=== PATIENT | female | born 1990 | race Caucasian/White ===

== ENCOUNTER 2016-09-27 10:05 | Emergency (ER) | payer OTHER ==
[2016-09-27 12:21] VITALS: BP 131/74
--- NOTE | 2016-09-27 12:59 | RAD ---
CLINICAL HISTORY: Right flank pain and microscopic hematuria COMPARISON: None TECHNIQUE: Multiple contiguous axial CT scans were obtained of the abdomen and pelvis, without intravenous contrast enhancement. Coronal and sagittal multiplanar reformations are submitted for review. Oral contrast was not administered. FINDINGS: The study is limited by the lack of intravenous contrast. This limits evaluation of the solid organs and vasculature. LUNG BASES: The lung bases are clear. LIVER: The liver is normal in shape, size, contour, and attenuation. BILE DUCTS: There is no intrahepatic or extrahepatic biliary dilatation. GALLBLADDER: The gallbladder is normal, without pericholecystic inflammatory change. PANCREAS: The pancreas is normal, without mass or ductal dilatation. SPLEEN: Normal in size and appearance. UPPER GI TRACT: Evaluation of the gastrointestinal tract is limited by incomplete gastric distention. The upper GI tract is unremarkable. SMALL BOWEL AND MESENTERY: The small bowel is normal in contour, course, and caliber. There is no obstruction or dilatation. COLON: The colon is normal in contour, course, caliber. There is no pericolonic inflammatory change. ADRENALS: Normal bilaterally. KIDNEYS: The kidneys are normal in shape, size, contour, and axis. There is no hydronephrosis or nephrolithiasis. BLADDER: The bladder is smooth in contour. PELVIC ORGANS: An IUD is noted. AORTA: The aorta is normal. IVC: Unremarkable LYMPH NODES: There is no lymphadenopathy by size criteria. ABDOMINAL WALL: There is no evidence for abdominal wall hernia. BONES AND SOFT TISSUES: Unremarkable OTHER: None IMPRESSION: NO HYDRONEPHROSIS OR NEPHROLITHIASIS.
--- NOTE | 2016-09-27 13:20 | UC ---
Complaint Female HPI - HPI Summary HPI Summary: 25 yo female with right flank pain x days associated with urgency and frequency of urination no f/c some nausea pain 6/10 hx uti hx kidney stones no vag d/c or itch - History Of Current Complaint Chief Complaint: UCGU Stated Complaint: URINARY,RIGHT/SIDE BACK PAIN Time Seen by Provider: 09/27/16 12:19 Hx Obtained From: Patient Hx Last Menstrual Period: 09/17/16 Onset/Duration: Gradual Onset, Lasting Days Timing: Constant Severity Initially: Moderate Severity Currently: Moderate Pain Intensity: 6 Pain Scale Used: 0-10 Numeric Character: Colicy Aggravating Factor(s): Nothing Alleviating Factor(s): Nothing Associated Signs And Symptoms: Positive: Back Pain, Nausea - Allergies/Home Medications Allergies/Adverse Reactions: Allergies Allergy/AdvReac Type Severity Reaction Status Date / Time Amoxicillin Allergy Intermediate Hives Verified 03/03/16 10:14 Cefaclor [From Ceclor] Allergy Intermediate Hives Verified 03/03/16 10:14 seasonal Allergy Shortness Uncoded 03/03/16 10:15 of Breath PMH/Surg Hx/FS Hx/Imm Hx Previously Healthy: Yes Endocrine History Of: Denies: Diabetes Cardiovascular History Of: Denies: Cardiac Disorders Respiratory History Of: Reports: Asthma GI/ History Of: Reports: Kidney Stones Psychological History Of: Reports: Anxiety - Surgical History Surgical History: Yes Surgery Procedure, Year, and Place: appy - Family History Known Family History: Positive: Hypertension Negative: Respiratory Disease, Seizure Disorder - Social History Alcohol Use: None Substance Use Type: None Smoking Status (MU): Never Smoked Tobacco Review of Systems Constitutional: Negative Skin: Negative Eyes: Negative ENT: Negative Respiratory: Negative Cardiovascular: Negative Gastrointestinal: Negative Genitourinary: Frequency, Urgency, Other - right flank pain Motor: Negative Neurovascular: Negative Musculoskeletal: Negative Neurological: Negative Psychological: Negative All Other Systems Reviewed And Are Negative: Yes Physical Exam Triage Information Reviewed: Yes Appearance: Pain Distress Vital Signs: Initial Vital Signs Temp 98.3 F 09/27/16 12:06 Pulse 84 09/27/16 12:06 Resp 14 09/27/16 12:06 BP 131/74 09/27/16 12:06 Pulse Ox 100 09/27/16 12:06 Vital Signs Reviewed: Yes Eyes: Positive: Conjunctiva Clear ENT: Positive: Hearing grossly normal. Negative: Nasal congestion, Nasal drainage, Tonsillar swelling, Tonsillar exudate, Trismus, Muffled/hoarse voice Neck: Positive: Supple, Nontender Respiratory: Positive: Lungs clear, Normal breath sounds, No respiratory distress, No accessory muscle use Cardiovascular Exam: Normal Cardiovascular: Positive: RRR, No Murmur. Negative: Tachycardia, Bradycardia Abdomen Description: Positive: Nontender, No Organomegaly, Soft, CVA Tenderness (R) Bowel Sounds: Positive: Present Musculoskeletal: Positive: ROM Intact, No Edema Neurological Exam: Normal Neurological: Positive: Alert Psychological Exam: Normal Skin Exam: Normal Complaint Female Dx - Differential Dx/Diagnosis Provider Diagnoses: right flank pain of uncertain cause. ? UTI Discharge - Discharge Plan Condition: Stable Disposition: HOME Prescriptions: Ciprofloxacin TAB* [Cipro Tab*] 250 mg PO BID #14 tab HYDROcodone/ACETAMIN 5-325 MG* [[place] 5-325 TAB*] 1 tab PO Q4H PRN #15 tab MDD 4 PRN Reason: Pain Ibuprofen TAB* [Motrin TAB*] 600 mg PO QID PRN #40 tab PRN Reason: Pain Phenazopyridine TAB* [Pyridium TAB*] 100 mg PO TID #6 tab Patient Education Materials: Urinary Tract Infection in Women (ED) Forms: *Work Release Referrals: No Primary Care Phys,NOPCP [Primary Care Provider] - Additional Instructions: POSSIBLE UTI URINE CULTURE PENDING YOUR CT SCAN SHOWED NO STONE RECHECK IN 2 DAYS IF NOT BETTER TO ER FOR NEW SYMPTOMS
== END 2016-09-27 13:28 | disposition home or self-care (01) ==
LOC: UCCORT 10:05
DX: R10.9 Unspecified abdominal pain (principal); Z87.442 Personal history of urinary calculi; Z87.440 Personal history of urinary (tract) infections; Z88.1 Allergy status to other antibiotic agents
CPT/HCPCS: 74176; 81025; 87086; 99212; G0463

== ENCOUNTER 2017-11-05 09:26 | Emergency (ER) | payer OTHER ==
[2017-11-05 09:43] VITALS: BP 134/78
--- NOTE | 2017-11-05 10:02 | UC ---
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 she states having headaches in her frontal and posterior head for the past week, actually better today. However, SHIRLEY was bad when she first woke up this morning. Pain has been over face/cheeks all week. Has hadsinus infections before and thinks that this may be same. denies fevers/chills. Body aches started yesterday , appetite has been ok. no n/v. Mild ST. Has mild asthma and has used albuterol with good relief for mild cough/asthma sx. - History of Current Complaint Chief Complaint: UCRespiratory Stated Complaint: BODY ACHES, SORE THROAT, CONGESTION Time Seen by Provider: 11/05/17 09:59 Hx Last Menstrual Period: 11/04/17 Pain Intensity: 3 - Allergies/Home Medications Allergies/Adverse Reactions: Allergies Allergy/AdvReac Type Severity Reaction Status Date / Time MS Amoxicillin [Amoxicillin] Allergy Intermediate Hives Verified 11/05/17 09:43 MS Cefaclor [From Ceclor] Allergy Intermediate Hives Verified 11/05/17 09:43 PMH/Surg Hx/FS Hx/Imm Hx Previously Healthy: Yes Respiratory History: Asthma - Surgical History Surgical History: Yes Surgery Procedure, Year, and Place: appy - Family History Known Family History: Positive: Hypertension, Diabetes - Brother, type I Negative: Respiratory Disease, Seizure Disorder - Social History Alcohol Use: Occasionally Substance Use Type: None Smoking Status (MU): Never Smoked Tobacco Review of Systems Constitutional: Fatigue Skin: Negative Eyes: Negative ENT: Sore Throat, Sinus Pain/Tenderness Respiratory: Negative Cardiovascular: Negative Gastrointestinal: Negative Genitourinary: Negative Motor: Negative Neurovascular: Negative Musculoskeletal: Negative Neurological: Negative Psychological: Negative Is Patient Immunocompromised?: No All Other Systems Reviewed And Are Negative: Yes Physical Exam Triage Information Reviewed: Yes Appearance: Well-Appearing, No Pain Distress, Well-Nourished Vital Signs: Initial Vital Signs Temp 98.6 F 11/05/17 09:35 Pulse 93 11/05/17 09:35 Resp 16 11/05/17 09:35 BP 134/78 11/05/17 09:35 Pulse Ox 100 11/05/17 09:35 Vital Signs Reviewed: Yes Eye Exam: Normal ENT: Positive: Pharyngeal erythema - no exudate, no abscess, Sinus tenderness - B/L maxillary > frontal.. Negative: TM bulging - mild rt serous fluid, TM dull , TM red, Hoarse voice Dental Exam: Normal Neck exam: Normal Neck: Positive: Supple, Nontender, No Lymphadenopathy Respiratory: Positive: Lungs clear, Normal breath sounds, No respiratory distress, No accessory muscle use. 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 We discussed that she is still contagious and should refrain from contact while she has sx, mask and hand washing. - Differential Dx/Diagnosis Differential Diagnosis/HQI/PQRI: Asthma, Bronchitis, Influenza, Sinusitis Provider Diagnoses: sinusitis Discharge - Discharge Plan Condition: Stable Disposition: HOME Prescriptions: Azithromyxin SABRINA (NF) [Z-Sabrina (Zithromax) 250 mg tabs #6] 250 mg PO .ZPAK INSTRUCTIONS #6 tab Patient Education Materials: Sinusitis (ED) Referrals: No Primary Care Phys,NOPCP [Primary Care Provider] - Additional Instructions: Make sure to take a probiotic daily while on antibiotics to help prevent a potential complication of antibiotic use called c diff. Some well known brands that can be found OTC are florastor, align and [employer]. Make sure to complete the entire prescription unless advised otherwise by your health care provider. -Follow up with your PCP in 1 week if you are not improved.
== END 2017-11-05 10:18 | disposition home or self-care (01) ==
LOC: UCCORT 09:26
DX: J32.9 Chronic sinusitis, unspecified (principal); J45.909 Unspecified asthma, uncomplicated; Z88.1 Allergy status to other antibiotic agents; Z88.0 Allergy status to penicillin
CPT/HCPCS: 99212; G0463

== ENCOUNTER 2018-01-21 07:08 | Emergency (ER) | payer OTHER ==
--- OUTSIDE RECORDS SUMMARY | 2018-01-21 07:20 | XMS REPORT ---
:1990 External Reference #:[id number] Author Organization [facility] Address [address] [place] [id number] Phone [phone] Care Team Providers Name Role Phone No Primary Care Physician Unavailable Payers Type Date Identification Numbers Payment Provider Subscriber Commercial Effective: Policy Number: Lifetime Benefit Zuleyma Evans 2014 [id number] ([employer]) PayID: [id number] [address] [place] [address] Medicaid Effective: 2017 Policy Number: Medicaid Pe ([facility]) Zuleyma Evans [id number] Expires: 2017 PayID: [id number] [address] [place] [address] Problems Description No Active Problems Family History Date Family Member(s) Problem(s) Comments General Diabetes Brother General Lung Cancer PGM Father Alive Father No Current Problems Mother Alive Mother Hypertension Social History Type Date Description Comments Education Bachelor's Degree Marital Status Legal Status: Occupation Social Work Work Status Full-Time Employment ETOH Use Occasionally consumes alcohol Smoking Patient has never smoked Recreational Drug Use Denies Drug Use Recreational Drug Use Teaching provided regarding Naloxone/Narcan Training Available At [facility] [employer] [place] Allergies, Adverse Reactions, Alerts Date Description Reaction Status Severity Comments 03/26/2016 Amoxicillin active 03/26/2016 Ceclor active 03/26/2016 Environmental active Medications Medication Date Status Form Strength Qnty SIG Indications Ordering Provider Nexplanon Active Implant 68mg One device Z30.017 In [place], 017 in Right arm subdermal Fluconazole Hx Tablets 150mg 1tabs one tab B37.3 Evie Bailey 016 - orally x one [place], dose [employer]INE SUR[employer]OR 017 Breo Ellipta Hx Unknown 000 - 018 Medications Administered in Office Medication Date Status Form Strength Qnty SIG Indications Ordering Provider Nexplanon Administered Injection Diane Device Miguel Rahman NP Vital Signs Date Vital Result Comment 01/05/2018 BP Systolic 119 mmHg BP Diastolic 71 mmHg Height 66.5 inches 5'6.50" Weight 161.00 lb BMI (Body Mass Index) 25.6 kg/m2 06/15/2017 BP Systolic 107 mmHg BP Diastolic 67 mmHg Height 66.5 inches 5'6.50" Weight 162.00 lb BMI (Body Mass Index) 25.8 kg/m2 05/30/2017 BP Systolic 122 mmHg post nexplanon insertion BP Diastolic 74 mmHg post nexplanon insertion Height 66.5 inches 5'6.50" 12/07/2016 BP Systolic 102 mmHg BP Diastolic 80 mmHg Height 66.5 inches 5'6.50" Weight 155.00 lb BMI (Body Mass Index) 24.6 kg/m2 03/26/2016 BP Systolic 106 mmHg BP Diastolic 68 mmHg Height 66.5 inches 5'6.50" Weight 147.00 lb BMI (Body Mass Index) 23.4 kg/m2 Results Test Date Test Result H/L Range Note Thinprep Pap Glassware Finisher W/RFX 06/15/2017 Results SEE NOTE 1 HPV HR Laboratory test finding 05/30/2017 Test neg Urine..... Urinalysis DIP Only.... 12/07/2016 Urine Leukocyte Esterase n QN Urine Nitrite QN n Urine Blood +++hemolyzed spotting Urine PH 5 Urine Protein Random n Urine Ketone Random n Urine Glucose QN Random n Laboratory test finding 12/07/2016 HGB Blood.... 14.2 Test Urine..... negative Culture,Urine,Voided 03/26/2016 Source URINE Final Report NAD 2 Thinprep Pap Glassware Finisher 03/26/2016 Results SEE NOTE 3 W/RFX HPV Mrna E6/E7 Laboratory test finding 03/26/2016 C.Trachomatis NOT DETECTED Not Detected 4 Rna,Tma W/RFX N.Gonorrhoeae Rna,Tma Wet Prep.... 03/26/2016 WBC Smear few Clue Cells Vag Fluid Wet Prep 0 Cookie Wet Prep hyphae and buds Lactobacillus Wet Prep many Whiff Wet Prep neg Bacteria Wet Prep n/a PH Wet Prep 4.5 Misc Other Test no trich seen Nadine Annual Lab Set 03/26/2016 HGB Blood.... 12.4 Urinalysis DIP Only.... 03/26/2016 Urine Leukocyte Esterase QN ++ Urine Nitrite QN N Urine Blood N Urine PH 5.0 Urine Protein Random N Urine Ketone Random N Urine Glucose QN Random N Laboratory test finding 03/26/2016 Test Urine..... neg 1 GYNECOLOGICAL CYTOLOGY REPORT Thinprep TIS PAP w/rfx to HPV E6/E7 REPORT STATUS: FINAL CLINICAL INFORMATION: Routine exam SLIDES / SOURCE: 1 / Cervix, Endocervix STATEMENT OF ADEQUACY: Satisfactory for evaluation. Endocervical/transformation zone component present. INTERPRETATION/RESULT: Negative for intraepithelial lesion or malignancy. COMMENT: This Pap test has been evaluated with computer assisted technology. DIRECTOR OF SEARCH ENGINE MARKETING: STEPHANY ZENG([facility]) For informational Purposes: All cytology specimens are processed and screened at [facility]. [address] [place] [id number] 2 SINGLE ORGANISM LESS THAN 10,000 CFU/ML ISOLATED. THESE ORGANISMS, COMMONLY FOUND ON EXTERNAL AND INTERNAL GENITALIA, ARE CONSIDERED COLONIZERS. NO FURTHER TESTING PERFORMED. 3 GYNECOLOGICAL CYTOLOGY REPORT Thinprep TIS PAP w/rfx to HPV E6/E7 REPORT STATUS: FINAL CLINICAL INFORMATION: Routine exam SLIDES / SOURCE: 1 / Information not provided STATEMENT OF ADEQUACY: Satisfactory for evaluation. Endocervical/transformation zone component present. INTERPRETATION/RESULT: Negative for intraepithelial lesion or malignancy. COMMENT: This Pap test has been evaluated with computer assisted technology. DIRECTOR OF SEARCH ENGINE MARKETING: STEPHANY ZENG([facility]) For informational Purposes: All cytology specimens are processed and screened at [facility] [place]. [address] [place] [address] 4 This test was performed using the APTIMA COMBO2(R) Assay (GEN-PROBE(R). The analytical performance characteristics of this assay, when used to test SurePath(R) specimens have been determined by [facility]. Procedures Date CPT Code Description Status 06/15/2017 70637 Remove Intrauterine Device Completed 05/30/2017 14659 Insertion, Non-Biodegradable Drug Delivery Implant Completed Encounters Type Date Location Provider CPT E/M Dx Office Visit 01/05/2018 4:00p [facility] Evie Haynes [place] [id number] N92.1 Z30.09 Z30.46 Z11.3 R68.82 Plan of Care 01/05/2018 - Evie Haynes NPN92.1 Excessive and frequent menstruation with irregular cycleNew Labs:TSH & Free T4New Xrays:Ultrasound Pelvic Nonob CompleteComments:Likely secondary to Nexplanon but due to patient having issues with bleeding in the past with CopperIUD, will obtain pelvic ultrasound and check thyroid. GCCT obtained to r/o infection.Z30.09 Encounter for oth general coun and advice on contraceptionComments:Lengthy discussion regarding contraception options. Patient cannot remember to take pills and estrogen is contraindicated due to her hx of migraine with aura. She had weight gain on Depo. She had heavy, long menses on ParaGard. She is currently having btb on Nexplanon. Reviewed other options: abstinence, condoms, sterilization or IUD. Patient is considering sterilization but is not 100% sure that sheis ready. She is very interested in either the Kyleena or Mirena. Reviewed use of, side effects, benefits, risks and placement of both. She would like to discuss it further with her . At this time she plans to continue with the Nexplanon.Z30.46 Enctr srvlnc implantable subdermal contraceptiveComments:BTB on implant. Recommend Aleve 440mg po bid x 7 days. If no improvement and labs/ us are WNL, patient is considering either a Mirena or a Kyleena. She would like to keep the Nexplanon in for now.Z11.3 Encntr screen for infections w sexl mode of transmissComments:Reviewed STD risks and prevention with patient. Patient states understanding.R66.82 Decreased libidoComments:Lengthy discussion regarding her low libido. Advise increase exercise, stress reduction and more "date nights". If no improvement, will further evaluate.
[2018-01-21 07:31] VITALS: BP 103/76
--- NOTE | 2018-01-21 07:57 | UC ---
Throat Pain/Nasal Darío HPI - HPI Summary HPI Summary: Pt presents with cough, green sputum, wheeze progressive x 4 days. Pt with a h/ o asthma. Pt has been using albuterol MDI with short term relief. Pt with multiple sick contacts at work. no fever, chills, rash. + head congestion. No OTC meds taken. No recent prednisone. No hospitalizations Pt's medications reviewed this visit - History of Current Complaint Chief Complaint: UCRespiratory Stated Complaint: COUGH/ST Time Seen by Provider: 01/21/18 07:22 Hx Obtained From: Patient Hx Last Menstrual Period: 01/14/18 Onset/Duration: Gradual Onset Severity: Moderate Pain Intensity: 4 Pain Scale Used: 0-10 Numeric Cough: Productive - green sputum Associated Signs & Symptoms: Positive: Negative - Epiglottits Risk Factors Epiglottis Risk Factors: Negative - Allergies/Home Medications Allergies/Adverse Reactions: Allergies Allergy/AdvReac Type Severity Reaction Status Date / Time amoxicillin Allergy Unknown Hives Verified 01/21/18 07:23 cefaclor [From Ceclor] Allergy Unknown Hives Verified 01/21/18 07:23 Home Medications: Home Medications Etonogestrel [Nexplanon] 68 mg IMPLANT 01/21/18 [History] PMH/Surg Hx/FS Hx/Imm Hx Previously Healthy: Yes Respiratory History: Asthma - Surgical History Surgical History: Yes Surgery Procedure, Year, and Place: appy - Family History Known Family History: Positive: Hypertension, Diabetes - Brother, type I Negative: Respiratory Disease, Seizure Disorder - Social History Occupation: Employed Full-time - social scientist [employer] Lives: With Family Alcohol Use: Occasionally Substance Use Type: None Smoking Status (MU): Never Smoked Tobacco Review of Systems Constitutional: Negative Respiratory: Cough All Other Systems Reviewed And Are Negative: Yes Physical Exam Triage Information Reviewed: Yes Appearance: Well-Appearing, No Pain Distress, Well-Nourished Vital Signs: Initial Vital Signs Temp 99.2 F 01/21/18 07:24 Pulse 118 01/21/18 07:24 Resp 18 01/21/18 07:24 BP 103/76 01/21/18 07:24 Pulse Ox 97 01/21/18 07:24 Vital Signs Reviewed: Yes Eye Exam: Normal Eyes: Positive: Conjunctiva Clear ENT Exam: Normal ENT: Positive: Normal ENT inspection, Pharynx normal Dental Exam: Normal Neck exam: Normal Neck: Positive: Supple, Nontender, No Lymphadenopathy Respiratory: Positive: Chest non-tender, No respiratory distress, No accessory muscle use, Wheezing - + scattered wheeze coarse cough no rhonci, no accessory muscle Cardiovascular Exam: Normal Cardiovascular: Positive: RRR, No Murmur, Pulses Normal Abdominal Exam: Normal Abdomen Description: Positive: Nontender, No Organomegaly, Soft Bowel Sounds: Positive: Present Musculoskeletal Exam: Normal Musculoskeletal: Positive: Strength Intact Neurological Exam: Normal Neurological: Positive: Alert Psychological Exam: Normal Psychological: Positive: Normal Response To Family Skin Exam: Normal Re-Evaluation - Re-Evaluation First Eval Re-Evaluation Time: 08:35 Comment: pt improved aeration. wheezing resolved. pt states feeling better. secretion precaution. spacer given - pt has MDI. pt comfortable and in agreement with plan Throat Pain/Nasal Course/Dx - Course Course Of Treatment: pt with 5 days progressive productive cough and wheeze. head congestion. h/o asthma. Pt with diffuse wheeze. will give neb and close reassessment - Differential Dx/Diagnosis Provider Diagnoses: acute bronchitis Discharge - Sign-Out/Discharge Documenting (check all that apply): Discharge/Admit/Transfer - Discharge Plan Condition: Stable Disposition: HOME Prescriptions: Azithromycin TAB* [Zithromax TAB (Z-LEE ANN) 250 mg #6 tabs] 2 tab PO .TODAY, THEN 1 DAILY #1 lee ann Benzonatate CAP* [Tessalon 100 MG CAP*] 100 mg PO TID #21 cap predniSONE TAB* [Deltasone TAB*] 50 mg PO DAILY #5 tab Patient Education Materials: Acute Bronchitis (ED) Referrals: No Primary Care Phys,NOPCP [Primary Care Provider] - Additional Instructions: -Take antibiotics exactly as prescribed until gone -Use your albuterol puffer - 2 puffs ever 4-6 hours for the next 2 days - then as needed - use your spacer for better medications delivery -Stay well hydrated - avoid excess caffeine and all alcohol -These infections are spread by secretions - do NOT share eating or drinking utensils - clean items you share with other people such as cell phones, computer mouse, TV remote, computer tablets,etc. After you have been on antibiotics for 2 days, change your pillowcase and your toothbrush - Okay to use medication as prescribed for coughing - Eat regular, healthy meals -Contact your doctor to arrange a follow-up appointment this week. Call your doctor, return here or go to the emergency department with any questions or concerns - Billing Disposition and Condition Condition: STABLE Disposition: HOME
[2018-01-21] MEDS ORDERED: Albuterol/Ipratropium NEB.SOL* Albuterol 2.5 MG/Ipratropium 0.5 MG 3 ML INH ONE (08:11)
== END 2018-01-21 09:02 | disposition home or self-care (01) ==
LOC: UCCORT 07:08
DX: J20.9 Acute bronchitis, unspecified (principal); Z88.3 Allergy status to other anti-infective agents
CPT/HCPCS: 87651; 99212; A9270-GY; G0463

== ENCOUNTER 2018-09-21 18:55 | Emergency (ER) | payer OTHER ==
[2018-09-21 19:47] VITALS: BP 119/69
--- NOTE | 2018-09-21 20:50 | UC ---
Complaint Female HPI - HPI Summary HPI Summary: 27 y/o female presents to the urgent care c/o urinary burning, urgency and frequency on urination for the past 3 days. Pt reports she has been drinking water. Pt denies any lower back pain, pelvic pain, vaginal discahrge, fever, flank pain, abdominal pain, N/V/D. LMP: 1 year ago w/ an IUD. Denies Hx of STD' s or UTI's. - History Of Current Complaint Chief Complaint: UCGU Stated Complaint: URINARY Time Seen by Provider: 09/21/18 20:34 Hx Obtained From: Patient Hx Last Menstrual Period: IUD ?: No Onset/Duration: Gradual Onset, Lasting Days - 3 days, Still Present Timing: Intermittent Severity Initially: Mild Severity Currently: Mild Pain Intensity: 2 Pain Scale Used: 0-10 Numeric Character: Burning Aggravating Factor(s): Urination Alleviating Factor(s): Nothing Associated Signs And Symptoms: Positive: Negative. Negative: Fever, Back Pain, Vaginal Bleeding/Discharge - Risk Factors Ectopic Risk Factor: Negative Ovarian Torsion Risk Factor: Negative - Allergies/Home Medications Allergies/Adverse Reactions: Allergies Allergy/AdvReac Type Severity Reaction Status Date / Time amoxicillin Allergy Unknown Hives Verified 09/21/18 19:40 cefaclor [From Ceclor] Allergy Unknown Hives Verified 09/21/18 19:40 Home Medications: Home Medications Levonorgestrel (Iud) [Kyleena IUD] 17.5 mcg IU ONCE 09/21/18 [History Confirmed 09/21/18] PMH/Surg Hx/FS Hx/Imm Hx Previously Healthy: Yes Respiratory History: Asthma - Surgical History Surgical History: Yes Surgery Procedure, Year, and Place: appy - Family History Known Family History: Positive: Hypertension, Diabetes - Brother, type I Negative: Respiratory Disease, Seizure Disorder - Social History Occupation: Employed Full-time Lives: With Family Alcohol Use: Occasionally Substance Use Type: None Smoking Status (MU): Never Smoked Tobacco Review of Systems All Other Systems Reviewed And Are Negative: Yes Constitutional: Positive: Negative Skin: Positive: Negative Eyes: Positive: Negative ENT: Positive: Negative Respiratory: Positive: Negative Cardiovascular: Positive: Negative Gastrointestinal: Positive: Negative Genitourinary: Positive: Dysuria, Frequency, Urgency Motor: Positive: Negative Neurovascular: Positive: Negative Musculoskeletal: Positive: Negative Neurological: Positive: Negative Psychological: Positive: Negative Is Patient Immunocompromised?: No Physical Exam - Summary Physical Exam Summary: VITAL SIGNS: Reviewed. GENERAL: Patient is a well developed and nourished female who is sitting comfortable in the examining table. Patient is not in any acute respiratory distress. HEAD AND FACE: No signs of trauma. No ecchymosis, hematomas or skull depressions. No sinus tenderness. EYES: PERRLA, EOMI x 2, No injected conjunctiva, clear watery eyes, no nystagmus. No photophobia. EARS: Hearing grossly intact. Ear canals and tympanic membranes are within normal limits. MOUTH: pharynx with no erythema, no exudates,no palatal petechiae. no B/L tonsillar enlargement Uvula in midline. NECK: Supple, trachea is midline, no lymphadenopathy, no JVD, no carotid bruit, no c-spine tenderness, neck with full ROM. CHEST: Symmetric, no tenderness at palpation LUNGS: Clear to auscultation bilaterally. No wheezing or crackles. CVS: Regular rate and rhythm, S1 and S2 present, no murmurs or gallops appreciated. ABDOMEN: Soft, non-tender. No signs of distention. No rebound no guarding, and no masses palpated. Bowel sounds are normal. BACK:no scoliosis or lesions, non tender to palpation, No B/L CVA tenderness EXTREMITIES: FROM in all major joints, no edema, no cyanosis or clubbing. NEURO: Alert and oriented x 3. No acute neurological deficits. Speech is normal and follows commands. SKIN: Dry and warm Triage Information Reviewed: Yes Vital Signs: Initial Vital Signs Temp 97.8 F 09/21/18 19:42 Pulse 78 09/21/18 19:42 Resp 15 09/21/18 19:42 BP 119/69 09/21/18 19:42 Pulse Ox 100 09/21/18 19:42 Complaint Female Dx - Course Course Of Treatment: 27 y/o female presents to the urgent care c/o urinary burning, urgency and frequency on urination for the past 3 days. Pt reports she has been drinking water. Pt denies any lower back pain, pelvic pain, vaginal discahrge, fever, flank pain, abdominal pain, N/V/D. LMP: 1 year ago w/ an IUD. Denies Hx of STD's or UTI's. Hx obtained. PE: WNL. UA:2+ketones, 2+ blood. Pt advised to increase hydration. No B?L CVA tenderness on palpation. [facility] for Dysuria. Pt Rx same medication. Urine sent for culture to lab to r/o any abnormality. Pt will be notified of results. Pt advised if not improvment of symptoms to return to the Urgent care of PCP or Urologist Dr Ray for further management of her Hematuria. D/C instructions explained. Pt understood and agreed w/ plan of care. Left clinic hemodynamically stable. - Differential Dx/Diagnosis Differential Diagnosis/HQI/PQRI: Cervicitis, Renal Colic, Ureteral Stone, Urinary Tract Infection Provider Diagnosis: Dysuria Discharge - Sign-Out/Discharge Documenting (check all that apply): Patient Departure - D/C home All imaging exams completed and their final reports reviewed: No Studies - Discharge Plan Condition: Stable Disposition: HOME Prescriptions: Phenazopyridine TAB* [Pyridium 100 mg TAB*] 100 mg PO TID #5 tab Patient Education Materials: Dysuria (ED) [place]: [facility] [place]] - 3 Days Simon Patel MD [Medical Doctor] - If Needed Additional Instructions: 1- Please take Pyridium 100 mg PO TID x 2 days to alleviate urinary symptoms. First dose given tonight. Increase increase fluid intake. drink cranberry juice. 2-Urine sent for culture if any abnormality, you will be notified for further treatment. 3-If symptoms do not improve please return to the urgent care or f/u with PCP or Urologist DR Ray for further evaluation and treatment on your Hematuria - Billing Disposition and Condition Condition: STABLE Disposition: Home - Attestation Statements Provider Attestation: I was available for consult. This patient was seen by the JUAN. The patient was not presented to, seen by, or examined by me. -Nusrat
[2018-09-21] MEDS: Phenazopyridine TAB* 100 MG PO ONE (21:10)
== END 2018-09-21 21:20 | disposition home or self-care (01) ==
LOC: UCCORT 18:55
DX: R30.0 Dysuria (principal); Z88.0 Allergy status to penicillin; Z88.1 Allergy status to other antibiotic agents
CPT/HCPCS: 81003; 87086; 99212; A9270-GY; G0463

== ENCOUNTER 2019-05-24 12:17 | Emergency (ER) | payer OTHER ==
[2019-05-24 13:28] VITALS: BP 121/73
--- NOTE | 2019-05-24 13:46 | UC ---
Respiratory Complaint HPI - HPI Summary HPI Summary: cough x 4 days cough is dry , harsh worse with deep breathing , better with rest, + chest tightness, wheezing, no fever, no chills mild nasal congestion - History of Current Complaint Chief Complaint: UCGeneralIllness Stated Complaint: COUGH Time Seen by Provider: 05/24/19 13:36 Hx Obtained From: Patient Hx Last Menstrual Period: has Kyleena IUD ?: No Onset/Duration: Gradual Onset, Lasting Days - 4, Still Present Timing: Constant Severity Initially: Moderate Severity Currently: Moderate Pain Intensity: 0 Character: Cough: Nonproductive Aggravating Factors: Exertion, Deep Breaths Alleviating Factors: Upright Position Associated Signs And Symptoms: Positive: Dyspnea, Wheezing, URI, Nasal Congestion. Negative: Fever, Chills, Pleuritic Chest Pain - Allergies/Home Medications Allergies/Adverse Reactions: Allergies Allergy/AdvReac Type Severity Reaction Status Date / Time amoxicillin Allergy Unknown Hives Verified 05/24/19 13:27 cefaclor [From Ceclor] Allergy Unknown Hives Verified 05/24/19 13:27 PMH/Surg Hx/FS Hx/Imm Hx Respiratory History: Asthma - Surgical History Surgical History: Yes Surgery Procedure, Year, and Place: appy - Family History Known Family History: Positive: Hypertension, Diabetes - Brother, type I Negative: Respiratory Disease, Seizure Disorder - Social History Alcohol Use: Occasionally Alcohol Amount: once a week Substance Use Type: None Smoking Status (MU): Never Smoked Tobacco Review of Systems All Other Systems Reviewed And Are Negative: Yes Constitutional: Positive: Negative Skin: Positive: Negative Eyes: Positive: Negative ENT: Positive: Nasal Discharge Respiratory: Positive: Shortness Of Breath, Cough Cardiovascular: Positive: Negative Is Patient Immunocompromised?: No Physical Exam Triage Information Reviewed: Yes Appearance: Well-Appearing, No Pain Distress, Well-Nourished Vital Signs: Initial Vital Signs Temp 99.9 F 05/24/19 13:23 Pulse 96 05/24/19 13:23 Resp 18 05/24/19 13:23 BP 121/73 05/24/19 13:23 Pulse Ox 100 05/24/19 13:23 Vital Signs Reviewed: Yes Eye Exam: Normal Eyes: Positive: Conjunctiva Clear ENT: Positive: Normal ENT inspection, Hearing grossly normal, Pharynx normal Neck: Positive: Supple, Nontender, No Lymphadenopathy Respiratory: Positive: Chest non-tender, Lungs clear, Wheezing Cardiovascular: Positive: RRR, No Murmur, Pulses Normal Respiratory Course/Dx - Differential Dx/Diagnosis Provider Diagnosis: Bronchitis Discharge ED - Sign-Out/Discharge Documenting (check all that apply): Patient Departure All imaging exams completed and their final reports reviewed: No Studies - Discharge Plan Condition: Stable Disposition: HOME Prescriptions: guaiFENesin/CODIEN 100MG-10MG* [Robitussin AC 100Mg-10Mg*] 10 ml PO Q8H PRN # 120 ml MDD 30 ml PRN Reason: Cough predniSONE [Prednisone 20 MG TAB] 20 mg PO DAILY #5 tablet Patient Education Materials: Acute Bronchitis (ED) Referrals: No Primary Care Phys,NOPCP [Primary Care Provider] - - Billing Disposition and Condition Condition: STABLE Disposition: Home
== END 2019-05-24 13:58 | disposition home or self-care (01) ==
LOC: UCCORT 12:17
DX: J40 Bronchitis, not specified as acute or chronic (principal); Z88.0 Allergy status to penicillin; Z88.1 Allergy status to other antibiotic agents
CPT/HCPCS: 99212; G0463

== ENCOUNTER 2019-08-06 13:39 | Emergency (ER) | payer OTHER ==
[2019-08-06 14:19] VITALS: BP 127/63
--- NOTE | 2019-08-06 14:35 | UC ---
Respiratory Complaint HPI - HPI Summary HPI Summary: 28-year-old female comes in with a chief complaint of 10-12 days of cough. Started out as upper respiratory tract infection with some rhinorrhea. Since then she's been having a cough especially at night when she is laying down. She 's been using her albuterol inhaler which only helps some. No recent fevers. She's not bringing up any sputum. She is also been having some abdominal discomfort after eating and has a appointment with a adjunct mathematics instructor in September 2019. Other than the albuterol she is not taking other medications. - History of Current Complaint Chief Complaint: UCRespiratory Stated Complaint: UPPER RESP/COUGH Time Seen by Provider: 08/06/19 14:13 Hx Last Menstrual Period: Kyleena IUD Pain Intensity: 3 - Allergies/Home Medications Allergies/Adverse Reactions: Allergies Allergy/AdvReac Type Severity Reaction Status Date / Time amoxicillin Allergy Unknown Hives Verified 08/06/19 14:15 cefaclor [From Ceclor] Allergy Unknown Hives Verified 08/06/19 14:15 PMH/Surg Hx/FS Hx/Imm Hx Previously Healthy: Yes Respiratory History: Asthma - Surgical History Surgical History: Yes Surgery Procedure, Year, and Place: Appendectomy, 2006, [place] - Family History Known Family History: Positive: Hypertension, Diabetes - Brother, type I Negative: Respiratory Disease, Seizure Disorder - Social History Alcohol Use: Occasionally Alcohol Amount: once a week Substance Use Type: None Smoking Status (MU): Never Smoked Tobacco Review of Systems All Other Systems Reviewed And Are Negative: Yes Constitutional: Positive: Other - SEE HPI Skin: Positive: Negative Eyes: Positive: Negative ENT: Positive: Nasal Discharge, Sinus Congestion Respiratory: Positive: Cough, Other - SEE HPI Cardiovascular: Positive: Negative Gastrointestinal: Positive: Abdominal Pain, Other - SEE HPI Motor: Positive: Negative Neurovascular: Positive: Negative Musculoskeletal: Positive: Negative Neurological: Positive: Negative Psychological: Positive: Negative Is Patient Immunocompromised?: No Physical Exam Triage Information Reviewed: Yes Appearance: Well-Appearing, No Pain Distress, Well-Nourished Vital Signs: Initial Vital Signs Temp 98 F 08/06/19 14:13 Pulse 90 08/06/19 14:13 Resp 18 08/06/19 14:13 BP 127/63 08/06/19 14:13 Pulse Ox 100 08/06/19 14:13 Vital Signs Reviewed: Yes Eye Exam: Normal Eyes: Positive: Conjunctiva Clear ENT: Positive: Pharynx normal, TMs normal Neck: Positive: Supple Respiratory: Positive: Lungs clear, Normal breath sounds, No respiratory distress, Other: - DRY COUGH Cardiovascular: Positive: RRR Abdomen Description: Positive: Nontender Musculoskeletal: Positive: Strength Intact, ROM Intact, No Edema - NO CALF TENDERNESS Neurological: Positive: Alert, Muscle Tone Normal Psychological: Positive: Age Appropriate Behavior Skin Exam: Normal Respiratory Course/Dx - Course Course Of Treatment: Am going to treat for more than 10 days of bronchitis with bronchospasm with a history of asthma with a azithromycin, albuterol and prednisone. Patient's coughing at night also could be due to untreated GERD. Therefore be treating with omeprazole 20 mg twice a day we talked about sleeping propped up. Also follow-up with her adjunct mathematics instructor September 2019 as scheduled. Reevaluate sooner if worse or any questions or concerns. - Differential Dx/Diagnosis Provider Diagnosis: Bronchitis with bronchospasm, Cough Discharge ED - Sign-Out/Discharge Documenting (check all that apply): Patient Departure All imaging exams completed and their final reports reviewed: No Studies - Discharge Plan Condition: Stable Disposition: HOME Prescriptions: Albuterol HFA INHALER* [Ventolin HFA Inhaler*] 2 puff INH Q4H PRN #1 mdi PRN Reason: Wheezing Azithromyxin SABRINA (NF) [Z-Sabrina (Zithromax) 250 mg tabs #6] 2 tab PO .TODAY, THEN 1 DAILY #6 tab Omeprazole 20 mg PO BID #30 capsule. predniSONE TAB* [Deltasone 20 MG TAB*] 40 mg PO DAILY #10 tab Patient Education Materials: Acute Bronchitis (ED), Bronchospasm (ED), Acute Cough (ED) Ref[place]: [facility] [place] [place] [[place]] Additional Instructions: FOLLOW UP WITH YOUR PRIMARY CARE DOCTOR. FOLLOW UP WITH YOUR INSURANCE COUNSELOR SCHEDULED IN September,. GET REEVALUATED SOONER IF NOT IMPROVING OR GO TO THE EMERGENCY DEPARTMENT IF WORSE; PAIN, FEVER, SHORTNESS OF BREATH, YOU FEEL ILL OR ANY QUESTIONS OR CONCERNS. - Billing Disposition and Condition Condition: STABLE Disposition: Home
== END 2019-08-06 14:46 | disposition home or self-care (01) ==
LOC: UCCORT 13:39
DX: J45.909 Unspecified asthma, uncomplicated (principal); R05 Cough; K21.9 Gastro-esophageal reflux disease without esophagitis; R09.81 Nasal congestion; Z88.0 Allergy status to penicillin; Z88.1 Allergy status to other antibiotic agents; Z79.899 Other long term (current) drug therapy
CPT/HCPCS: 99212; G0463